=== PATIENT | female | born 1935 | race Caucasian/White ===

== ENCOUNTER 2017-11-01 18:47 | Inpatient (IN) | payer OTHER ==
[~2017-11-01] VITALS: Ht 154.9 cm; Wt 66.2 kg
[~2017-11-01 18:47] MED LIST: ALPRAZOLAM0.25 M2 PO; CEFDINIR300 MG PO; CENTRUM SILVER1 EAC3 PO; CRESTOR40 MG PO; DILTIAZEM 24HR180 MG PO; DILTIAZEM ER180 M3 PO; DIOVAN80 MG PO; ECOTRIN325 MG PO; FLAGYL500 MG PO; KEFLEX500 MG PO; MIRALAX17 GM PO; MYLICON,MYLANTA80 MG PO; PANTOPRAZOLE SO40 MG PO; SIMVASTATIN40 MG PO; SYNTHROID50 MCG PO; TAZTIA XT180 M1 PO; ULTRAM50 MG PO; VAGIFEM10 MCG PO; VAGIFEM10 MCG VG; ZANTAC150 MG PO; ZOCOR40 MG PO; ZOFRAN ODT4 MG PO; ZOFRAN4 MG PO
[2017-11-01 19:26] LABS: HEMATOCRIT 31.1 % (36.0-46.0); MCH 32.4 PG (29.0-34.0); MCHC 35.4 G/DL (30.0-36.0); MCV 91.7 FL (83-99); PLATELET COUNT 262 K/uL (156-360); RBC DIS.WIDTH-SD 40.3 % (39-53); RED BLOOD COUNT 3.39 M/uL (3.80-5.20); WHITE BLOOD COUNT 6.1 K/uL (4.1-10.2)
[2017-11-01 19:35] LABS: CHLORIDE 91 mEq/L (99-109); POTASSIUM 4.7 mEq/L (3.7-5.4); SODIUM 125 mEq/L (136-147)
[2017-11-01 19:38] LABS: TOTAL PROTEIN 6.8 g/dL (6.4-8.3)
[2017-11-01 19:40] LABS: TOTAL BILIRUBIN 0.7 mg/dL (0.0-1.0)
[2017-11-01 19:43] LABS: AST (GOT) 19 IU/L (2-34)
[2017-11-01 19:53] LABS: ALBUMIN 4.2 g/dL (3.2-4.8)
[2017-11-01 19:56] LABS: GLUCOSE 102 mg/dL (70-99)
[2017-11-01 19:59] LABS: ALKALINE PHOSPHATASE 62 IU/L (3-129); CREATININE 1.2 mg/dL (0.6-1.3); GFR ESTIMATE (CALCULATED) 46 mL/min/
[2017-11-01 20:01] LABS: UREA NITROGEN (BUN) 17 mg/dL (9-23)
[2017-11-01 20:02] LABS: ALT (GPT) 16 IU/L (3-49)
[2017-11-01 20:03] LABS: LIPASE 29 U/L (1.0-51.0)
[2017-11-01 20:51] LABS: APPEARANCE CLEAR ((CLEAR)); BILIRUBIN NEGATIVE; BLOOD SMALL; COLOR STRAW ((YELLOW)); GLUCOSE (STRIP) NEGATIVE; KETONES NEGATIVE; LEUKOCYTES TRACE; NITRITE NEGATIVE; PROTEIN (STRIP) NEGATIVE; SPECIFIC GRAVITY 1.003 (1.000-1.030); UROBILINOGEN 0.2 MG/DL (0.2-1.0)
[2017-11-01 21:10] LABS: BACTERIA RARE /HPF; EPITHELIAL CELLS RARE /HPF; MUCUS NONE SEEN /LPF; RED BLOOD CELLS 0-5 /HPF (0-5); UCUL ADDED? NO; WHITE BLOOD CELLS 0-5 /HPF (0-5)
[2017-11-01] MEDS ORDERED: SYMBICORT60 INHALA1 IH (21:19)
[2017-11-01] MEDS ORDERED: ARTIFICIAL TEAR1510 BOTH EYES (21:19)
[2017-11-01] MEDS ORDERED: XANAX0.25 MG PO (21:20)
[2017-11-01] MEDS ORDERED: DIOVAN160 MG PO (21:20)
[2017-11-01] MEDS ORDERED: LO-DOSE ASPIRIN81 M1 PO (21:20)
[2017-11-01] MEDS ORDERED: PROMETHAZINE12.5 M1 PO (21:20)
[2017-11-01] MEDS ORDERED: CENTRUM SILVER1 EAC4 PO (21:21)
[2017-11-01] MEDS ORDERED: FISH OIL 1,0001 EAC7 PO (21:21)
[2017-11-01] MEDS ORDERED: MIRALAX17 GM PO (21:22)
[2017-11-01] MEDS ORDERED: PRILOSEC20 MG PO (21:22)
[2017-11-01] MEDS ORDERED: NITROSTAT0.4 MG SL (21:22)
[2017-11-01] MEDS ORDERED: CALAN40 MG PO (21:23)
[2017-11-01] MEDS ORDERED: LIPITOR10 MG PO (21:23)
[2017-11-01 22:39] LABS: TROP-I INTERPRETATION NEGATIVE; TROPONIN-I < 0.01 ng/mL (0.0-0.30)
[2017-11-01 23:35] VITALS: BP 158/85
[2017-11-02 03:58] VITALS: BP 124/60
[2017-11-02 05:21] LABS: HEMATOCRIT 30.2 % (36.0-46.0); HEMOGLOBIN 10.1 G/DL (11.9-15.5); MCH 31.3 PG (29.0-34.0); MCHC 33.4 G/DL (30.0-36.0); MCV 93.5 FL (83-99); PLATELET COUNT 246 K/uL (156-360); RBC DIS.WIDTH-SD 41.4 % (39-53); RED BLOOD COUNT 3.23 M/uL (3.80-5.20); WHITE BLOOD COUNT 4.4 K/uL (4.1-10.2)
[2017-11-02 06:16] LABS: ALBUMIN 3.6 G/DL (3.2-4.8); ALKALINE PHOSPHATASE 48 IU/L (3-129); ALT (GPT) 12 IU/L (3-49); AST (GOT) 14 IU/L (2-34); CHLORIDE 104 MEQ/L (99-109); CREATININE 1.2 MG/DL (0.6-1.3); GFR ESTIMATE (CALCULATED) 46 mL/min/; GLUCOSE 88 mg/dL (70-99); POTASSIUM 5.1 MEQ/L (3.7-5.4); TOTAL BILIRUBIN 0.7 MG/DL (0.0-1.0); TOTAL PROTEIN 5.6 G/DL (6.4-8.3); UREA NITROGEN (BUN) 13 mg/dL (9-23)
[2017-11-02 06:20] LABS: SODIUM 135 MEQ/L (136-147)
[2017-11-02 06:26] LABS: TROP-I INTERPRETATION NEGATIVE; TROPONIN-I 0.01 ng/mL (0.0-0.30)
[2017-11-02 07:16] VITALS: BP 152/66
[2017-11-02 11:31] LABS: TROP-I INTERPRETATION NEGATIVE; TROPONIN-I 0.02 ng/mL (0.0-0.30)
[2017-11-02 11:40] VITALS: BP 132/80
[2017-11-02 16:14] LABS: C DIFF TOXIN NEGATIVE (NEGATIVE)
[2017-11-02 16:22] VITALS: BP 131/63
[2017-11-02 20:09] VITALS: BP 125/60
[2017-11-03 00:03] VITALS: BP 148/68
[2017-11-03 03:33] VITALS: BP 144/68
[2017-11-03 08:12] VITALS: BP 152/86
[2017-11-03 08:46] LABS: HEMATOCRIT 31.6 % (36.0-46.0); HEMOGLOBIN 10.5 G/DL (11.9-15.5); MCH 31.8 PG (29.0-34.0); MCHC 33.2 G/DL (30.0-36.0); MCV 95.8 FL (83-99); PLATELET COUNT 225 K/uL (156-360); RBC DIS.WIDTH-CV 12.3 % (11.8-14.6); RBC DIS.WIDTH-SD 43.2 % (39-53); WHITE BLOOD COUNT 4.6 K/uL (4.1-10.2)
[2017-11-03 09:13] LABS: CHLORIDE 105 MEQ/L (99-109); GFR ESTIMATE (CALCULATED) 57 mL/min/; GLUCOSE 95 mg/dL (70-99); POTASSIUM 4.1 MEQ/L (3.7-5.4); SODIUM 136 MEQ/L (136-147); UREA NITROGEN (BUN) 9 mg/dL (9-23)
[2017-11-03 10:56] VITALS: BP 139/65
== END 2017-11-03 14:12 | disposition home or self-care (01) | DRG 641 ==
LOC: EME 18:47 → 5SOUTH 21:35 → EDOF 21:35 → ENRESERV 21:36 → 5SOUTH 23:26
PROVIDERS: Internal Medicine; Nurse Practitioner Adult Health; Physician Assistant
DX: E87.1 Hypo-osmolality and hyponatremia (principal); E78.5 Hyperlipidemia, unspecified; E03.9 Hypothyroidism, unspecified; I10 Essential (primary) hypertension; K31.84 Gastroparesis; F41.9 Anxiety disorder, unspecified; K21.9 Gastro-esophageal reflux disease without esophagitis; K51.90 Ulcerative colitis, unspecified, without complications; E86.0 Dehydration; I25.10 Atherosclerotic heart disease of native coronary artery without angina pectoris; I25.2 Old myocardial infarction; Z82.49 Family history of ischemic heart disease and other diseases of the circulatory system; Z86.73 Personal history of transient ischemic attack (TIA), and cerebral infarction without residual deficits; Z95.5 Presence of coronary angioplasty implant and graft; Z95.1 Presence of aortocoronary bypass graft; Z90.710 Acquired absence of both cervix and uterus; Z79.82 Long term (current) use of aspirin; Z87.891 Personal history of nicotine dependence
CPT/HCPCS: 36415; 80048; 80053; 81003; 83630; 83690; 83930; 83935; 84484; 85027; 87177; 87493; 87506; 93005; 99202; 99281; 99285; C9113; J1644; J2405; J7030